=== PATIENT | male | born 1955 | race Caucasian/White ===

== ENCOUNTER 2018-06-13 17:28 | Emergency (ER) | payer BC ==
--- OUTSIDE RECORDS SUMMARY | 2018-06-13 17:39 | XMS REPORT | Continuity of Care Document ---
:1955 External Reference #:[id number] Author Name Isadora Nguyen Care Team Providers Name Role Phone Radames Taylor MD Primary Care Physician Unavailable Payers Date Identification Numbers Payment Provider Subscriber Effective: 2012 Policy Number: [id number] [facility] Thaddeus Patterson SR PayID: [id number] [address] [address] [place] [address] Advance Directives Description No Information Available Problems Active Problems Provider Date Hyperlipidemia Onset: 05/04/2012 Essential hypertension Onset: 05/04/2012 Chronic ischemic heart disease Onset: 05/04/2012 Coronary arteriosclerosis Onset: 05/04/2012 Benign prostatic hypertrophy without outflow obstruction Onset: 05/04/2012 Osteoarthritis Onset: 05/04/2012 Family History Date Family Member(s) Observation Comments Father Heart Attack Mother Hypothyroidism Social History Type Date Description Comments Sex Unknown Marital Status Lives With Spouse Occupation Full-Time Employment ETOH Use Currently consumes alcohol ETOH Use consumes 3-4 beers per day Tobacco Use Start: Unknown End: Patient is a former smoker Start Date: 2011 Unknown chewing Tobacco 05/12/2017 Smoking Status Reviewed: 06/11/18 Patient is a former smoker Start Date: 2011 chewing Tobacco 05/12/2017 Allergies, Adverse Reactions, Alerts Active Allergies Reaction Severity Comments Date Clopidogrel 02/13/2018 Medications Active Medications SIG Qnty Indications Ordering Provider Date Aspir-81 1 by mouth Radames 11/11/[address] every day MD Claudia Folic Acid 1 daily Radames 03/09/2014 20mg Capsules MD Claudia Lisinopril-Hydrochlorot 1 po qd 90tabs I10 Radames 11/05/2011 hiazide MD Claudia 20-25mg Tablets Simvastatin 1 po qd 90tabs I25.10 Radames 11/05/2011 20mg Tablets MD Claudia Metoprolol Tartrate 1 1/2 twice a 135tabs I10 Radames 11/05/2011 50mg day MD Claudia Tablets Nitroglycerin Unknown 0.4mg Tablets Sub History Medications Dexilant 1 po qd 30caps 789.06 Radames Taylor, 11/19/2011 - 60mg 03/09/2014 Capsules Famotidine 1 tab by 180tabs 789.06 Radames Taylor, 11/14/2011 - 20mg mouth twice a 11/19/2011 Tablets day Aspirin Ec 1 po qd 90tabs 414.01 Radames Taylor, 11/05/2011 - 325mg 11/19/2011 Tablets Lisinopril-Trevon Mendieta MD - orothiazide 05/12/2017 20-25mg Tablets Immunizations CPT Code Status Date Vaccine Lot # [id number] Given 01/01/2013 Influenza Virus 3Yrs & Over 31832 Given 11/05/2011 Tdap - Tetanus/Diptheria/Acellular Pertussis 91223 Given 11/05/2011 Influenza Virus 3Yrs & Over 46628 Given 01/08/2005 Tetanus Toxoid Adsorbed, For Intramuscular Use Vital Signs Date Vital Result Comment 06/11/2018 4:03pm Height 198 inches 16'6" Weight 63.00 lb Heart Rate 68 /min BP Systolic 122 mmHg BP Diastolic 66 mmHg Respiratory Rate 16 /min O2 % BldC Oximetry 7 % room air BMI (Body Mass Index) 1.1 kg/m2 11/11/2017 4:18pm Weight 201.00 lb BP Systolic 118 mmHg BP Diastolic 82 mmHg 05/12/2017 3:11pm Height 61.50 inches Weight 194.50 lb Heart Rate 60 /min BP Systolic 118 mmHg BP Diastolic 76 mmHg Respiratory Rate 16 /min BMI (Body Mass Index) 36.2 kg/m2 11/13/2016 4:46pm Weight 198.00 lb BP Systolic 100 mmHg BP Diastolic 68 mmHg 06/11/2016 4:20pm Height 65.75 inches Weight 200.00 lb BP Systolic 126 mmHg BP Diastolic 82 mmHg BMI (Body Mass Index) 32.5 kg/m2 05/08/2016 3:05pm Height 65.75 inches Weight 197.50 lb Heart Rate 64 /min BP Systolic 118 mmHg BP Diastolic 74 mmHg Respiratory Rate 16 /min BMI (Body Mass Index) 32.1 kg/m2 11/08/2015 3:58pm Weight 203.00 lb BP Systolic 120 mmHg BP Diastolic 72 mmHg 05/08/2015 3:28pm Height 61.50 inches Weight 196.00 lb Heart Rate 68 /min BP Systolic 134 mmHg BP Diastolic 88 mmHg Respiratory Rate 16 /min Body Temperature 97.9 F BMI (Body Mass Index) 36.4 kg/m2 06/16/2014 3:35pm Weight 188.00 lb BP Systolic 100 mmHg BP Diastolic 60 mmHg 03/09/2014 1:59pm Height 61 inches Weight 201.00 lb Heart Rate 64 /min BP Systolic 108 mmHg BP Diastolic 70 mmHg Respiratory Rate 16 /min Body Temperature 98.0 F BMI (Body Mass Index) 38.0 kg/m2 12/04/2011 4:13pm Height 65 inches Weight 185.00 lb Heart Rate 68 /min BP Systolic 100 mmHg BP Diastolic 80 mmHg Respiratory Rate 16 /min Body Temperature 97.3 F BMI (Body Mass Index) 30.8 kg/m2 11/19/2011 2:07pm Weight 186.00 lb BP Systolic 102 mmHg BP Diastolic 68 mmHg 11/19/2011 5:32pm Heart Rate 70 /min Results Test Date Facility Test Result H/L Range Note LDL Cholesterol 09/27/2017 N2N/[facility]D Import Cholesterol 136 mg/dL 1, 2 Profile HDL Cholesterol 48 mg/dL 3 LDL-Cholesterol 50 mg/dL 4 Reflex add FT3? Y Reflex add FT4? Y Triglycerides 190 mg/dL High 5 Laboratory test 09/27/2017 N2N/[facility] Import C-Reactive 3.8 mg/L High finding Protein,Quant Glycohemoglobin (A1c) 6.1 % 4.2-6.3 6 PSA ([place] Loci) 1.76 ng/mL 7 Reflex add FT3? Y Reflex add FT4? Y Thyroid Stim Hormone 1.47 uIU/mL 0.3-4.2 eAG 128 mg/dL CBC 09/27/2017 N2N/[facility] Import Hematocrit 40.6 % 38-48 Hemoglobin 13.7 gm/dL 12.8-17 Mean Cell Volume 88.8 fl 80-96 Mean Corpuscular HGB 30.0 pg 27-33 Mean Corpuscular HGB Conc 33.7 g/dL 31.7-36 Mean Platelet Volume 10.8 fL High 6.6-10.6 Platelet Count 149 K/uL Low 155-360 Red Blood Count 4.57 M/uL 4.2-5.8 Red Cell Distri Width %CV 13.7 % 11.6-15.8 White Blood Count 7.3 K/uL 3.4-10.5 Comprehensive Metabolic Panel 09/27/2017 N2N/[facility] Import Alb/Glob 1.2 ratio Albumin 4.0 g/dL 3.4-5 Alkaline Phosphatase 64 U/L 45-117 Anion Gap 10 mEq/L 8-16 BUN 26 mg/dL High 7-18 BUN/Creat 17.3 ratio Bilirubin,Total 0.6 mg/dL 0.2-1 Calcium 9.2 mg/dL 8.5-10.1 Carbon Dioxide 24 mmol/L 21-32 Chloride 108 mmol/L High 98-107 Creatinine 1.5 mg/dL High 0.6-1.3 Globulin 3.4 g/dL 1.9-4.3 Glom Filtration Rate, Estimate 50 mL/min Glucose 107 mg/dL High 74-106 If >60 mL/min 8 Potassium 4.6 mmol/L 3.5-5.1 Reflex add FT3? Y Reflex add FT4? Y SGPT/Alt 32 U/L 12-78 Sgot/Ast 16 U/L 15-37 Sodium 142 mmol/L 136-145 Total Protein 7.4 g/dL 6.4-8.2 Homocyst(E)Ine, P/S 09/27/2017 N2N/[facility]D Import Homocyst(e)ine, 17.0 High 0 -15 9 P/S umol/L Laboratory test 03/08/2017 N2N/[facility]D Import Vitamin 40.3 30-100 10, finding D,25-Hydroxy ng/mL 11 CBC 03/08/2017 N2N/CCD Import Hematocrit 39.5 % 38-48 Hemoglobin 13.2 gm/dL 12.8-17 Mean Cell Volume 89.8 fl 80-96 Mean Corpuscular HGB 30.0 pg 27-33 Mean Corpuscular HGB Conc 33.4 g/dL 31.7-36 Mean Platelet Volume 12.0 fL High 6.6-10.6 Platelet Count 187 K/uL 155-360 Red Blood Count 4.40 M/uL 4.2-5.8 Red Cell Distri Width %CV 13.1 % 11.6-15.8 White Blood Count 8.5 K/uL 3.4-10.5 Comprehensive Metabolic Panel 03/08/2017 N2N/CCD Import Alb/Glob 1.2 ratio Albumin 3.8 g/dL 3.4-5 Alkaline Phosphatase 64 U/L 45-117 Anion Gap 7 mEq/L Low 8-16 BUN 26 mg/dL High 7-18 BUN/Creat 20.0 ratio Bilirubin,Total 0.4 mg/dL 0.2-1 Calcium 9.1 mg/dL 8.5-10.1 Carbon Dioxide 27 mmol/L 21-32 Chloride 107 mmol/L 98-107 Creatinine 1.3 mg/dL 0.6-1.3 Globulin 3.2 g/dL 1.9-4.3 Glom Filtration Rate, Estimate 60 mL/min Glucose 94 mg/dL 74-106 If >60 mL/min 12 Potassium 4.1 mmol/L 3.5-5.1 SGPT/Alt 34 U/L 12-78 Sgot/Ast 15 U/L 15-37 Sodium 141 mmol/L 136-145 Total Protein 7.0 g/dL 6.4-8.2 LDL Cholesterol Profile 03/08/2017 N2N/CCD Import Cholesterol 131 mg/dL 13 HDL Cholesterol 60 mg/dL 14 LDL-Cholesterol 46 mg/dL 15 Triglycerides 126 mg/dL 16 Microalbumin,Random 03/08/2017 N2N/CCD Import Microalbumin,Urine 16.2 mg/L Urine Imaging finding 06/20/2016 N2N/CCD Import Exercise Stress Test <pending> Laboratory test finding 05/11/2016 N2N/CCD Import Hepatitis C Antibody Nonreactive 17 PSA ([place]oci) 1.58 ng/mL 18 Reflex add FT3? Y Reflex add FT4? Y Signal/Cutoff ratio < 0.02 19 Thyroid Stim Hormone 1.60 uIU/mL 0.3-4.2 CBC 05/11/2016 N2N/CCD Import Hematocrit 41.3 % 38-48 Hemoglobin 14.1 gm/dL 12.8-17 Mean Cell Volume 86.4 fl 80-96 Mean Corpuscular HGB 29.5 pg 27-33 Mean Corpuscular HGB Conc 34.1 g/dL 31.7-36 Mean Platelet Volume 12.0 fL High 6.6-10.6 Platelet Count 142 K/uL Low 150-400 Red Blood Count 4.78 M/uL 4.2-5.8 Red Cell Distri Width %CV 13.6 % 11.6-15.8 White Blood Count 5.7 K/uL 3.4-10.5 Comprehensive Metabolic Panel 05/11/2016 N2N/CCD Import Alb/Glob 1.1 ratio Albumin 3.9 g/dL 3.4-5 Alkaline Phosphatase 70 U/L 45-117 Anion Gap 8 mEq/L 8-16 BUN 24 mg/dL High 7-18 BUN/Creat 17.1 ratio Bilirubin,Total 0.6 mg/dL 0.2-1 Calcium 8.5 mg/dL 8.5-10.1 Carbon Dioxide 24 mmol/L 21-32 Chloride 110 mmol/L High 98-107 Creatinine 1.4 mg/dL High 0.6-1.3 Globulin 3.4 g/dL 1.9-4.3 Glom Filtration Rate, Estimate 55 mL/min Glucose 100 mg/dL 74-106 If >60 mL/min 20 Potassium 4.3 mmol/L 3.5-5.1 Reflex add FT3? Y Reflex add FT4? Y SGPT/Alt 29 U/L 12-78 Sgot/Ast 15 U/L 15-37 Sodium 142 mmol/L 136-145 Total Protein 7.3 g/dL 6.4-8.2 LDL Cholesterol Profile 05/11/2016 N2N/CCD Import Cholesterol 157 mg/dL 21 HDL Cholesterol 47 mg/dL 22 LDL-Cholesterol 72 mg/dL 23 Reflex add FT3? Y Reflex add FT4? Y Triglycerides 192 mg/dL High 24 Microalbumin,Random 05/11/2016 N2N/CCD Import Microalbumin,Urine 31.2 mg/L Urine Laboratory test finding 05/13/2015 N2N/CCD Import C-Reactive 4.76 mg/L Protein,Cardiac Glycohemoglobin (A1c) 6.0 % 4.2-6.3 25 Microalbumin,Random Urine < 5.0 mg/L Prostate Specific Antigen 1.84 ng/mL 26 Thyroid Stim Hormone 1.46 uIU/mL 0.36-3.74 Vitamin D,25-Hydroxy 26.2 ng/mL Low 30-100 27 eAG 126 mg/dL CBC 05/13/2015 N2N/CCD Import Hematocrit 42.0 % 38-48 Hemoglobin 14.2 gm/dL 12.8-17 Mean Cell Volume 86.1 fl 80-96 Mean Corpuscular HGB 29.1 pg 27-33 Mean Corpuscular HGB Conc 33.8 g/dL 31.7-36 Mean Platelet Volume 12.1 fL High 6.6-10.6 Platelet Count 151 K/uL 150-400 Red Blood Count 4.88 M/uL 4.2-5.8 Red Cell Distri Width %CV 13.5 % 11.6-15.8 White Blood Count 5.7 K/uL 3.4-10.5 Comprehensive Metabolic Panel 05/13/2015 N2N/CCD Import Alb/Glob 1.2 ratio Albumin 4.1 g/dL 3.4-5 Alkaline Phosphatase 74 U/L 45-117 Anion Gap 6 mEq/L Low 8-16 BUN 28 mg/dL High 7-18 BUN/Creat 20.0 ratio Bilirubin,Total 0.4 mg/dL 0.2-1 Calcium 8.9 mg/dL 8.5-10.1 Carbon Dioxide 26 mmol/L 21-32 Chloride 107 mmol/L 98-107 Creatinine 1.4 mg/dL High 0.6-1.3 Globulin 3.5 g/dL 1.9-4.3 Glom Filtration Rate, Estimate 55 mL/min Glucose 107 mg/dL High 74-106 If >60 mL/min 28 Potassium 4.3 mmol/L 3.5-5.1 SGPT/Alt 28 U/L 12-78 Sgot/Ast 13 U/L Low 15-37 29 Sodium 139 mmol/L 136-145 Total Protein 7.6 g/dL 6.4-8.2 LDL Cholesterol Profile 05/13/2015 N2N/CCD Import Cholesterol 132 mg/dL 30 HDL Cholesterol 43 mg/dL 31 LDL-Cholesterol 66 mg/dL 32 Triglycerides 114 mg/dL 33 Laboratory test 03/19/2014 [facility] Import C-Reactive 1.54 mg/L finding Protein,Cardiac Glycohemoglobin (A1c) 5.9 % 4.2-6.3 34 Homocyst(E)Ine, Plasma 22.3 umol/L High 0-15 35 Microalbumin,Random Urine 35.7 mg/L Prostate Specific Antigen 1.84 ng/mL 36 Thyroid Stim Hormone 1.57 uIU/mL 0.36-3.74 Vitamin D,25-Hydroxy 30.1 ng/mL 30-100 37 eAG 123 mg/dL CBC W/Automated Diff 03/19/2014 N2N/CCD Import Bas% 0.4 % 0.1-1 Baso # 0.03 K/uL Low 0.1-0.2 Eo% 3.0 % 0-5 Eos # 0.22 K/uL 0-0.5 Hematocrit 41.7 % 38-48 Hemoglobin 14.2 gm/dL 12.8-17 Lymph # 2.72 K/uL 1.2-4 Lymph % 36.7 % 17-56 Mean Cell Volume 86.7 fl 80-96 Mean Corpuscular HGB 29.5 pg 27-33 Mean Corpuscular HGB Conc 34.1 g/dL 31.7-36 Mean Platelet Volume 12.0 fL High 6.6-10.6 [place] # 0.73 K/uL High 0-0.6 [place] % 9.8 % 0-10 Neut# 3.72 K/uL 1.8-7 Neut% 50.1 % 33-73 Platelet Count 176 K/uL 150-400 Red Blood Count 4.81 M/uL 4.2-5.8 Red Cell Distri Width %CV 13.3 % 11.6-15.8 Red Cell Distri Width SD 40.4 fl 36-51 White Blood Count 7.4 K/uL 3.4-10.5 Comprehensive Metabolic Panel 03/19/2014 N2N/CCD Import Alb/Glob 1.6 ratio Albumin 4.4 g/dL 3.4-5 Alkaline Phosphatase 75 U/L 45-117 Anion Gap 13 mEq/L 8-16 BUN 29 mg/dL High 7-18 BUN/Creat 18.1 ratio Bilirubin,Total 0.7 mg/dL 0.2-1 Calcium 9.2 mg/dL 8.5-10.1 Carbon Dioxide 25 mmol/L 21-32 Chloride 109 mmol/L High 98-107 Creatinine 1.6 mg/dL High 0.6-1.3 Globulin 2.8 g/dL 1.9-4.3 Glom Filtration Rate, Estimate 47 mL/min Glucose 89 mg/dL 74-106 If 57 mL/min 38 Potassium 4.6 mmol/L 3.5-5.1 SGPT/Alt 26 U/L 12-78 Sgot/Ast 19 U/L 15-37 Sodium 142 mmol/L 136-145 Total Protein 7.2 g/dL 6.4-8.2 LDL Cholesterol Profile 03/19/2014 N2N/CCD Import Cholesterol 118 mg/dL 39 HDL Cholesterol 37 mg/dL 40 LDL-Cholesterol 50 mg/dL 41 Triglycerides 157 mg/dL 42 Laboratory test 11/20/2011 N2N/[facility]D Import Helicobacter <0.9 U/mL 0-0.8 43 finding Pylori, Igg CBC W/Automated 11/20/2011 N2N/CCD Import Bas% 0.5 % 0.1-1 Diff Baso # 0.04 K/uL Low 0.1-0.2 Eo% 2.4 % 0-5 Eos # 0.19 K/uL 0-0.5 Hematocrit 34.8 % Low 38-48 Hemoglobin 11.8 gm/dL Low 12.8-17 Lymph # 3.96 K/uL 1.2-4 Lymph % 49.5 % 17-56 Mean Cell Volume 88.5 fl 80-96 Mean Corpuscular HGB 30.0 pg 27-33 Mean Corpuscular HGB Conc 33.9 g/dL 31.7-36 Mean Platelet Volume 10.2 fL 6.6-10.6 [place] # 0.79 K/uL High 0-0.6 [place] % 9.9 % 0-10 Neut# 3.02 K/uL 1.8-7 Neut% 37.7 % 33-73 Platelet Count 248 K/uL 150-400 Red Blood Count 3.93 M/uL Low 4.2-5.8 Red Cell Distri Width %CV 12.7 % 11.6-15.8 Red Cell Distri Width SD 39.9 fl 36-51 White Blood Count 8.0 K/uL 3.4-10.5 Stool Culture 11/19/2011 N2N[facility] Import Shiga Toxin 1 See Note 44 Shiga Toxin 2 See Note 45 Stool Culture See Note 46 Laboratory test 11/19/2011 [facility] Import Cryptosporidium See Note 47 finding Specific Ag Giardia Specific Antigen See Note 48 Laboratory test 11/16/2011 N2N/[facility]D Import Hepatitis A Nonreactive 49 finding Antibody -IgM Nonreactive Hepatitis B Core Antibody-IgM Nonreactive Nonreactive 50 Hepatitis B Surface Antigen Nonreactive Nonreactive 51 Hepatitis C Antibody Nonreactive Nonreactive Signal/Cutoff ratio < 0.02 52 CBC W/Automated Diff 11/16/2011 N2N/[facility]D Import Bas% 0.9 % 0.1-1 Baso # 0.06 K/uL Low 0.1-0.2 Eo% 2.3 % 0-5 Eos # 0.15 K/uL 0-0.5 Hematocrit 35.1 % Low 38-48 Hemoglobin 11.8 gm/dL Low 12.8-17 Lymph # 3.22 K/uL 1.2-4 Lymph % 49.8 % 17-56 Mean Cell Volume 89.1 fl 80-96 Mean Corpuscular HGB 29.9 pg 27-33 Mean Corpuscular HGB Conc 33.6 g/dL 31.7-36 Mean Platelet Volume 10.5 fL 6.6-10.6 [place] # 0.79 K/uL High 0-0.6 [place] % 12.2 % High 0-10 Neut# 2.24 K/uL 1.8-7 Neut% 34.8 % 33-73 Platelet Count 246 K/uL 150-400 Red Blood Count 3.94 M/uL Low 4.2-5.8 Red Cell Distri Width %CV 13.1 % 11.6-15.8 Red Cell Distri Width SD 41.9 fl 36-51 White Blood Count 6.5 K/uL 3.4-10.5 Iron-Tibc-%Sat 11/16/2011 N2N/[facility]D Import Serum Iron 92 g/dL 31-144 Total Iron Binding Capacity 366 g/dL 245-419 Transferrin %Saturation 25 % 12-57 Vitamin B12 And Folate 11/16/2011 N2N/CCD Import Folic Acid 150.6 ng/mL High 6-15.4 Vitamin B12 473 pg/mL 200-900 Laboratory test 11/09/2011 N2N/[facility]D Import Bilirubin,Direct 0.1 mg/dL 0.1 -0.4 finding C-Reactive Protein,Cardiac 18.40 mg/L High 0-3 53 Prostate Specific Antigen 1.59 ng/mL 0-4 54 CBS W/Automated Diff 11/09/2011 N2N/[facility]D Import Bas% 1.0 % 0.1-1 Baso # 0.07 K/uL Low 0.1-0.2 Eo% 1.1 % 0-5 Eos # 0.08 K/uL 0-0.5 Hematocrit 34.7 % Low 38-48 Hemoglobin 11.7 gm/dL Low 12.8-17 Lymph # 3.71 K/uL 1.2-4 Lymph % 52.3 % 17-56 Mean Cell Volume 87.8 fl 80-96 Mean Corpuscular HGB 29.6 pg 27-33 Mean Corpuscular HGB Conc 33.7 g/dL 31.7-36 Mean Platelet Volume 11.3 fL High 6.6-10.6 [place] # 0.94 K/uL High 0-0.6 [place] % 13.3 % High 0-10 Neut# 2.29 K/uL 1.8-7 Neut% 32.3 % Low 33-73 Platelet Count 188 K/uL 150-400 Red Blood Count 3.95 M/uL Low 4.2-5.8 Red Cell Distri Width %CV 13.6 % 11.6-15.8 Red Cell Distri Width SD 42.3 fl 36-51 White Blood Count 7.1 K/uL 3.4-10.5 Comprehensive Metabolic Panel 11/09/2011 N2N/CCD Import Alb/Glob 1.0 ratio Albumin 3.4 g/dL Low 3.5-5 Alkaline Phosphatase 84 U/L 50-136 Anion Gap 12 mEq/L 8-16 BUN 22 mg/dL 5-23 BUN/Creat 15.7 ratio Bilirubin,Total 0.4 mg/dL 0.2-1.2 Calcium 8.9 mg/dL 8.5-10.1 Carbon Dioxide 25 mEq/L 18-29 Chloride 106 mmol/L 98-107 Creatinine 1.4 mg/dL 0.5-1.4 Globulin 3.3 g/dL 1.9-4.3 Glom Filtration Rate, Estimate 56 mL/min Glucose 99 mg/dL 76-115 If >60 mL/min 55 Potassium 4.1 mmol/L 3.5-5.1 SGPT/Alt 92 U/L High 30-65 Sgot/Ast 73 U/L High 16-40 Sodium 139 mmol/L 136-145 Total Protein 6.7 g/dL 6.3-8 LDL Cholesterol Profile 11/09/2011 N2N/CCD Import Cholesterol 123 mg/dL 120-200 HDL Cholesterol 25 mg/dL Low 29-83 LDL-Cholesterol 60 mg/dL Low 62-185 Triglycerides 189 mg/dL 16-231 Laboratory test finding 04/13/2011 N2N/CCD Import CK 134 U/L 26-190 LDL Cholesterol Profile 04/13/2011 N2N/CCD Import Cholesterol 151 mg/dL 120-200 HDL Cholesterol 43 mg/dL 29-83 LDL-Cholesterol 77 mg/dL 62-185 Triglycerides 156 mg/dL 16-231 Liver Function Tests 04/13/2011 N2N/CCD Import Alb/Glob 1.3 ratio Albumin 4.0 g/dL 3.5-5 Alkaline Phosphatase 64 U/L 50-136 Bilirubin,Direct 0.1 mg/dL 0.1-0.4 Bilirubin,Indirect 0.3 mg/dL 0-0.9 Bilirubin,Total 0.4 mg/dL 0.2-1.2 Globulin 3.0 g/dL 1.9-4.3 SGPT/Alt 27 U/L Low 30-65 Sgot/Ast 12 U/L Low 16-40 Total Protein 7.0 g/dL 6.3-8 1 E66.O9.I25.1O,Z12.5, 2 Reference Guidelines*: Desirable: ........... < 200 mg/dL Borderline High: ..... 200-239 mg/dL High: ................ >=240 mg/dL * The National Cholesterol Education Program (NCEP) 3 Reference Guidelines*: Low HDL: ..... < 40 mg/dL Normal: ..... 40-60 mg/dL Desirable: ... > 60 mg/dL *The National Cholesterol Education Program(NCEP) 4 Reference Guidelines*: Optimal:........... <100 mg/dL Near Optimal....... 100-129 mg/dL Borderline High.... 130-159 mg/dL High............... 160-189 mg/dL Very High.......... >=190 mg/dL * Source: National Cholesterol Education Program (NCEP) 5 Reference Guidelines*: Normal: ............. < 150 mg/dL Borderline High: .... 150-199 mg/dL High: ............... 200-499 mg/dL Very High: .......... > 500 mg/dL * Source: National Cholesterol Education Program (NCEP) 6 Elevated levels of HbA1c suggest the need for more aggressive treatment of glycemia. The [employer] Diabetes Association recommends that a primary goal of therapy should be a HbA1c of <7% and that physicians should re-evaluate the treatment regimen in patients with HbA1c values consistently >8%. 7 THIS ASSAY IS NOT INTENDED A CANCER SCREENING TEST The concentration of PSA in a given specimen, determined with assays from different manufacturers, can vary due to differences in assay methods and reagent specificity. Values obtained from different assay methods cannot be used interchangeably. Method: [employer] [place] Chemiluminescent immunoassay. 8 Note: Persistent reduction for 3 months or more in an eGFR <60 mL/min/1.73 m2 defines CKD. Patients with eGFR values >/=60 mL/min/1.73 m2 may also have CKD if evidence of persistent proteinuria is present. The original MDRD equation for estimated GFR is not valid for patients less than 18 years of age. Additional information may be found at www.kdoqi.org. 9 Performed at: RN - [facility] [address] [id number] Furnace Room Supervisor: Laura Martin MD, Phone: [phone] 10 Z02.9 11 Vitamin D deficiency has been defined by the Bear of [employer] and an Endocrine Society practice guideline as a level of serum 25-OH vitamin D less than 20 ng/mL (1,2). The Endocrine Society went on to further define vitamin D insufficiency as a level between 21 and 29 ng/mL (2). 1. IOM (Bear of [employer]). 2010. Dietary reference intakes for calcium and D. [place]: The National Academies Press. 2. Austin MF, Arslan NC, Michelle FULTON, et al. Evaluation, treatment, and prevention of vitamin D deficiency: an Endocrine Society clinical practice guideline. JCEM. 2010; 96(7):1911-30. Performed at: RN - [facility] [address] [id number] Furnace Room Supervisor: Laura Martin MD, Phone: [phone] 12 Note: Persistent reduction for 3 months or more in an eGFR <60 mL/min/1.73 m2 defines CKD. Patients with eGFR values >/=60 mL/min/1.73 m2 may also have CKD if evidence of persistent proteinuria is present. The original MDRD equation for estimated GFR is not valid for patients less than 18 years of age. Additional information may be found at www.kdoqi.org. 13 Reference Guidelines*: Desirable: ........... < 200 mg/dL Borderline High: ..... 200-239 mg/dL High: ................ >=240 mg/dL * The National Cholesterol Education Program (NCEP) 14 Reference Guidelines*: Low HDL: ..... < 40 mg/dL Normal: ..... 40-60 mg/dL Desirable: ... > 60 mg/dL *The National Cholesterol Education Program(NCEP) 15 Reference Guidelines*: Optimal:........... <100 mg/dL Near Optimal....... 100-129 mg/dL Borderline High.... 130-159 mg/dL High............... 160-189 mg/dL Very High.......... >=190 mg/dL * Source: National Cholesterol Education Program (NCEP) 16 Reference Guidelines*: Normal: ............. < 150 mg/dL Borderline High: .... 150-199 mg/dL High: ............... 200-499 mg/dL Very High: .......... > 500 mg/dL * Source: National Cholesterol Education Program (NCEP) 17 Z12.5 E78.5 I10 Z11.9 Z68.2 18 THIS ASSAY IS NOT INTENDED A CANCER SCREENING TEST The concentration of PSA in a given specimen, determined with assays from different manufacturers, can vary due to differences in assay methods and reagent specificity. Values obtained from different assay methods cannot be used interchangeably. Method: [employer] Chemiluminescent immunoassay. 19 Antibodies to HCV not detected; does not exclude early acute HCV infection. 20 Note: Persistent reduction for 3 months or more in an eGFR <60 mL/min/1.73 m2 defines CKD. Patients with eGFR values >/=60 mL/min/1.73 m2 may also have CKD if evidence of persistent proteinuria is present. The original MDRD equation for estimated GFR is not valid for patients less than 18 years of age. Additional information may be found at www.kdoqi.org. 21 Reference Guidelines*: Desirable: ........... < 200 mg/dL Borderline High: ..... 200-239 mg/dL High: ................ >=240 mg/dL * The National Cholesterol Education Program (NCEP) 22 Reference Guidelines*: Low HDL: ..... < 40 mg/dL Normal: ..... 40-60 mg/dL Desirable: ... > 60 mg/dL *The National Cholesterol Education Program(NCEP) 23 Reference Guidelines*: Optimal:........... <100 mg/dL Near Optimal....... 100-129 mg/dL Borderline High.... 130-159 mg/dL High............... 160-189 mg/dL Very High.......... >=190 mg/dL * Source: National Cholesterol Education Program (NCEP) 24 Reference Guidelines*: Normal: ............. < 150 mg/dL Borderline High: .... 150-199 mg/dL High: ............... 200-499 mg/dL Very High: .......... > 500 mg/dL * Source: National Cholesterol Education Program (NCEP) 25 Elevated levels of HbA1c suggest the need for more aggressive treatment of glycemia. The [employer] Diabetes Association recommends that a primary goal of therapy should be a HbA1c of <7% and that physicians should re-evaluate the treatment regimen in patients with HbA1c values consistently >8%. 26 THIS ASSAY IS NOT INTENDED A CANCER SCREENING TEST The concentration of PSA in a given specimen, determined with assays from different manufacturers, can vary due to differences in assay methods and reagent specificity. Values obtained from different assay methods cannot be used interchangeably. 27 Vitamin D deficiency has been defined by the [employer] and an Endocrine Society practice guideline as a level of serum 25-OH vitamin D less than 20 ng/mL (1,2). The Endocrine Society went on to further define vitamin D insufficiency as a level between 21 and 29 ng/mL (2). 1. IOM (Bear of [employer]). 2010. Dietary reference intakes for calcium and D. [place]: The National Academies Press. 2. Austin MF, Arslan NC, Michelle FULTON, et al. Evaluation, treatment, and prevention of vitamin D deficiency: an Endocrine Society clinical practice guideline. JCEM. 2010; 96(7):1911-30. Performed at: RN - [facility] [address] [id number] Furnace Room Supervisor: Laura Martin MD, Phone: [phone] 28 Note: Persistent reduction for 3 months or more in an eGFR <60 mL/min/1.73 m2 defines CKD. Patients with eGFR values >/=60 mL/min/1.73 m2 may also have CKD if evidence of persistent proteinuria is present. The original MDRD equation for estimated GFR is not valid for patients less than 18 years of age. Additional information may be found at www.kdoqi.org. 29 Values below the stated reference ranges of AST and ALT can be seen in normal populations. Clinical correlation is suggested. 30 Reference Guidelines*: Desirable: ........... < 200 mg/dL Borderline High: ..... 200-239 mg/dL High: ................ >=240 mg/dL * The National Cholesterol Education Program (NCEP) 31 Reference Guidelines*: Low HDL: ..... < 40 mg/dL Normal: ..... 40-60 mg/dL Desirable: ... > 60 mg/dL *The National Cholesterol Education Program(NCEP) 32 Reference Guidelines*: Optimal:........... <100 mg/dL Near Optimal....... 100-129 mg/dL Borderline High.... 130-159 mg/dL High............... 160-189 mg/dL Very High.......... >=190 mg/dL * Source: National Cholesterol Education Program (NCEP) 33 Reference Guidelines*: Normal: ............. < 150 mg/dL Borderline High: .... 150-199 mg/dL High: ............... 200-499 mg/dL Very High: .......... > 500 mg/dL * Source: National Cholesterol Education Program (NCEP) 34 Elevated levels of HbA1c suggest the need for more aggressive treatment of glycemia. The [employer] recommends that a primary goal of therapy should be a HbA1c of <7% and that physicians should re-evaluate the treatment regimen in patients with HbA1c values consistently >8%. 35 Performed at: - [facility] [id number] Furnace Room Supervisor: Laura Martin MD, Phone: [phone] 36 THIS ASSAY IS NOT INTENDED A CANCER SCREENING TEST The concentration of PSA in a given specimen, determined with assays from different manufacturers, can vary due to differences in assay methods and reagent specificity. Values obtained from different assay methods cannot be used interchangeably. 37 Vitamin D deficiency has been defined by the [employer] and an Endocrine Society practice guideline as a level of serum 25-OH vitamin D less than 20 ng/mL (1,2). The Endocrine Society went on to further define vitamin D insufficiency as a level between 21 and 29 ng/mL (2). 1. IOM ([employer]). 2010. Dietary reference intakes for calcium and D. [place]: The National Academies Press. 2. Austin MF, Arslan NC, Michelle FULTON, et al. Evaluation, treatment, and prevention of vitamin D deficiency: an Endocrine Society clinical practice guideline. JCEM. 2010; 96(7):1911-30. Performed at: - [facility] [address], [place] [id number] Furnace Room Supervisor: Laura Martin MD, Phone: [phone] 38 Note: Persistent reduction for 3 months or more in an eGFR <60 mL/min/1.73 m2 defines CKD. Patients with eGFR values >/=60 mL/min/1.73 m2 may also have CKD if evidence of persistent proteinuria is present. The original MDRD equation for estimated GFR is not valid for patients less than 18 years of age. Additional information may be found at www.kdoqi.org. 39 Reference Guidelines*: Desirable: ........... < 200 mg/dL Borderline High: ..... 200-239 mg/dL High: ................ >=240 mg/dL * The National Cholesterol Education Program (NCEP) 40 Reference Guidelines*: Low HDL: ..... < 40 mg/dL Normal: ..... 40-60 mg/dL Desirable: ... > 60 mg/dL *The National Cholesterol Education Program(NCEP) 41 Reference Guidelines*: Optimal:........... <100 mg/dL Near Optimal....... 100-129 mg/dL Borderline High.... 130-159 mg/dL High............... 160-189 mg/dL Very High.......... >=190 mg/dL * Source: National Cholesterol Education Program (NCEP) 42 Reference Guidelines*: Normal: ............. < 150 mg/dL Borderline High: .... 150-199 mg/dL High: ............... 200-499 mg/dL Very High: .......... > 500 mg/dL * Source: National Cholesterol Education Program (NCEP) 43 Negative <0.9 Indeterminate 0.9 - 1.0 Positive >1.0 Performed at: - [facility] [id number] Furnace Room Supervisor: Laura Martin MD, Phone: [phone] 44 Test not performed INSUFFICENT GROWTH TO PERFORM TESTING 45 Test not performed INSUFFICENT GROWTH TO PERFORM TESTING 46 Organism 1 ! NO GROWTH 47 NEGATIVE FOR CRYPTOSPORIDIUM SPECIFIC ANTIGEN 48 NEGATIVE FOR GIARDIA SPECIFIC ANTIGEN. The specimen will be held for 5 days. Additional testing may be performed upon request if the antigen tests are negative, and the patient is still symptomatic or has traveled to an endemic region. 49 IgM antibodies to HAV not detected; does not exclude early acute or recovered HAV infection. 50 IgM anti-HBc not detected. Does not exclude the possibility of exposure to or infection with HBV. 51 HBsAg not detected; does not exclude the possibility of exposure to or early acute infections with HBV. 52 Antibodies to HCV not detected; does not exclude early acute HCV infection. 53 Relative Risk for Future Cardiovascular Event Low <1.00 Average 1.00 - 3.00 High >3.00 54 THIS ASSAY IS NOT INTENDED A CANCER SCREENING TEST The concentration of PSA in a given specimen, determined with assays from different manufacturers, can vary due to differences in assay methods and reagent specificity. Values obtained from different assay methods cannot be used interchangeably. 55 Note: Persistent reduction for 3 months or more in an eGFR <60 mL/min/1.73 m2 defines CKD. Patients with eGFR values >/=60 mL/min/1.73 m2 may also have CKD if evidence of persistent proteinuria is present. The original MDRD equation for estimated GFR is not valid for patients less than 18 years of age. Additional information may be found at www.kdoqi.org. Procedures Date Code Description Status 05/08/2015 60774 Visual funct screen test, automated Completed 05/08/2015 84033 Pure Tone Hearing Test, Air Completed 06/16/2014 72312 Removal F/B Ext Ear W/O Anesthesia Completed 12/04/2011 41221 Visual funct screen test, automated Completed 12/04/2011 66531 Pure Tone-Air Condition Only Completed 11/19/2011 88947 Colonoscopy Flexible Diagnostic Completed 11/19/2011 [id number] Colonoscopy Completed Encounters Description No Information Available Plan of Treatment Future Appointment(s):06/14/2019 4:00 pm - Radames Taylor MD at [facility]
[2018-06-13 17:54] VITALS: BP 121/61
[2018-06-13] MEDS ORDERED: Albuterol/Ipratropium NEB.SOL* Albuterol 2.5 MG/Ipratropium 0.5 MG 3 ML INH ONE (18:22)
--- NOTE | 2018-06-13 18:25 | UC ---
Respiratory Complaint HPI - HPI Summary HPI Summary: Patient has had sinus pressure, cough and no is short of breath and wheezing. pain in the lower ribs when coughing. has not taken any medication for thses symtpoms - History of Current Complaint Chief Complaint: UCRespiratory Stated Complaint: CHEST CONGESTION, COUGH Time Seen by Provider: 06/13/18 17:51 Hx Obtained From: Patient Onset/Duration: Sudden Onset, Lasting Days Timing: Constant Severity Initially: Mild Severity Currently: Moderate Pain Intensity: 0 Character: Cough: Nonproductive Aggravating Factors: Exertion, Deep Breaths, Recumbent Position Alleviating Factors: Nothing Associated Signs And Symptoms: Positive: Dyspnea, Wheezing, Nasal Congestion, Sinus Discomfort - Allergies/Home Medications Allergies/Adverse Reactions: Allergies Allergy/AdvReac Type Severity Reaction Status Date / Time clopidogrel [From Plavix] Allergy Hives Verified 06/13/18 17:54 Home Medications: Home Medications Folic Acid TAB* [Folvite TAB*] 1 mg PO DAILY 06/13/18 [History Confirmed ] Lisinopril/HCTZ 20/25(NF) [Zestoretic 20/25(NF)] 1 tab PO DAILY 06/13/18 [ History Confirmed 06/13/18] Metoprolol Tartrate TAB* [Lopressor TAB*] 75 mg PO DAILY 06/13/18 [History Confirmed 06/13/18] Simvastatin [Zocor] 20 mg PO BEDTIME 06/13/18 [History Confirmed 06/13/18] PMH/Surg Hx/FS Hx/Imm Hx Previously Healthy: Yes - Surgical History Surgical History: Yes Surgery Procedure, Year, and Place: left knee replacement - Social History Alcohol Use: Occasionally Substance Use Type: None Smoking Status (MU): Never Smoked Tobacco Review of Systems All Other Systems Reviewed And Are Negative: Yes ENT: Positive: Ear Ache, Nasal Discharge, Sinus Congestion Respiratory: Positive: Shortness Of Breath, Cough Is Patient Immunocompromised?: No Physical Exam Triage Information Reviewed: Yes Appearance: Well-Appearing, Well-Nourished, Ill-Appearing Vital Signs: Initial Vital Signs Temp 98.0 F 06/13/18 17:50 Pulse 51 06/13/18 17:50 Resp 22 06/13/18 17:50 BP 121/61 06/13/18 17:50 Pulse Ox 100 06/13/18 17:50 Vital Signs Reviewed: Yes Eye Exam: Normal ENT: Positive: Pharyngeal erythema, Nasal congestion, Nasal drainage, TM bulging Dental Exam: Normal Neck exam: Normal Respiratory: Positive: No respiratory distress, No accessory muscle use, Crackles - left lower lobe, Wheezing - throughout, Inspiration Cardiovascular Exam: Normal Cardiovascular: Positive: RRR, No Murmur, Pulses Normal Abdominal Exam: Normal Abdomen Description: Positive: Nontender, No Organomegaly, Soft Musculoskeletal Exam: Normal Neurological Exam: Normal Psychological Exam: Normal Skin Exam: Normal Respiratory Course/Dx - Course Course Of Treatment: hx obtained, exam performed ,meds reviewed, duo neb given - Differential Dx/Diagnosis Provider Diagnosis: Wheezing, Serous otitis media Discharge - Sign-Out/Discharge Documenting (check all that apply): Patient Departure All imaging exams completed and their final reports reviewed: No Studies - Discharge Plan Condition: Stable Disposition: HOME Prescriptions: predniSONE [Prednisone 20 MG TAB] 40 mg PO DAILY #10 tablet Patient Education Materials: Wheezing (ED), Serous Otitis Media (ED) Referrals: Radames Taylor MD [Primary Care Provider] - Additional Instructions: 1. take the medication as prescribed. 2. FOllow up if not improving 3. Zyrtec or claritin or its equivalent daily for the next 2 weeks - Billing Disposition and Condition Condition: STABLE Disposition: Home
[2018-06-13] MEDS ORDERED: Albuterol HFA INHALER* 8 gm MDI INH ONE (18:33)
[2018-06-13] MEDS ORDERED: predniSONE TAB* 20 MG PO ONE (18:34)
== END 2018-06-13 19:12 | disposition home or self-care (01) ==
LOC: UCCORT 17:28
DX: R06.2 Wheezing (principal); H65.90 Unspecified nonsuppurative otitis media, unspecified ear; Z79.899 Other long term (current) drug therapy; Z88.8 Allergy status to other drugs, medicaments and biological substances
CPT/HCPCS: 99203; A9270-GY; G0463; J7512